=== PATIENT | male | born 1965 | race Caucasian/White ===

== ENCOUNTER 2021-04-22 23:45 | Emergency (ER) | payer SELFPAY ==
[~2021-04-22] VITALS: Ht 175.3 cm; Wt 87.0 kg
[2021-04-23 00:37] LABS: BASOPHILS % (AUTO) 0 % (0-1); EOSINOPHILS % (AUTO) 3 % (1-7); LYMPHOCYTES % (AUTO) 31 % (22-44); MEAN CORPUSCULAR HEMOGLOBIN 31.4 pg (27.5-34.5); MEAN CORPUSCULAR HGB CONC 34.6 g/dL (33.2-36.2); MEAN PLATELET VOLUME 9.2 fL (7.4-10.4); MONOCYTES % (AUTO) 13 % (2-9); NEUTROPHILS % (AUTO) 52 % (42-75); PLATELET COUNT 215 x10^3/uL (130-400); RED BLOOD COUNT 5.26 x10^6/uL (4.38-5.82); RED CELL DISTRIBUTION WIDTH 13.4 % (9.4-14.8)
[2021-04-23 00:47] LABS: ANION GAP 3 mmol/L (5-15); CHLORIDE 103 mmol/L (98-107); CREATININE 1.36 mg/dL (0.7-1.3)
[2021-04-23] MEDS ORDERED: ONDANSETRON 2MG/ML, 2ML ONE (01:26)
[2021-04-23] MEDS ORDERED: KETOROLAC 30 MG/1 ML ONE (01:26)
[2021-04-23] MEDS ORDERED: KETOROLAC 30 MG/1 ML IVPush ONE (01:30)
[2021-04-23] MEDS ORDERED: ONDANSETRON 2MG/ML, 2ML IVPush ONE (01:30)
[2021-04-23] MEDS ORDERED: SODIUM CHLORIDE FLUSH 10ML SYR IVF ONE (01:30)
[2021-04-23] MEDS ORDERED: MORPHINE SULFATE 4 MG/ML, 1ML IVPush PRN (01:30)
[2021-04-23] MEDS ORDERED: MORPHINE SULFATE 4 MG/ML, 1ML ONE (01:39)
--- NOTE | 2021-04-23 01:55 | NUR ---
PT WALKED BACK TO THIS RNS ROOM AT THIS TIME. PT CAME INTO ED TODAY DUE TO LEFT FLANK PAIN SINCE THIS AFTERNOON. PT HAS HX OF KIDNEY STONES THAT "FEEL SIMILAR TO THIS BUT THIS IS WORSE". PT MEDICATED PER DEC, UA OBTAINED, PROVIDED WARM BLANKETS FOR COMFORT, SO AT BS. WCTM. WAITING FOR UA
[2021-04-23 02:16] LABS: MICROSCOPIC AUTO
[2021-04-23 02:35] VITALS: BP 136/76
== END 2021-04-23 03:09 | disposition home or self-care (01) ==
LOC: ED 23:54
DX: N13.2 Hydronephrosis with renal and ureteral calculous obstruction (principal); Z87.891 Personal history of nicotine dependence
CPT/HCPCS: 36415; 76770; 80048; 81001; 85025; 96374; 96375; 99284; J1885; J2270; J2405

== ENCOUNTER 2021-04-23 14:19 | Emergency (ER) | payer SELFPAY ==
[~2021-04-23] VITALS: Ht 175.3 cm; Wt 86.8 kg
[2021-04-23] MEDS ORDERED: ONDANSETRON 2MG/ML, 2ML IVPush ONE (15:00)
[2021-04-23] MEDS ORDERED: SODIUM CHLORIDE FLUSH 10ML SYR IVF ONE (15:00)
[2021-04-23] MEDS ORDERED: HYDROmorphone 1 MG/ML, 1ML INJ IV ONE (15:00)
[2021-04-23] MEDS ORDERED: HYDROmorphone 1 MG/ML, 1ML INJ ONE (15:13)
[2021-04-23] MEDS ORDERED: ONDANSETRON 2MG/ML, 2ML ONE (15:13)
--- NOTE | 2021-04-23 15:19 | NUR ---
RECEIVED VERBAL ORDER FROM ERP OK TO CHANGE MED ROUTE TO IM. ORDER INPUT AND CARRIED OUT.
[2021-04-23] MEDS ORDERED: ONDANSETRON 2MG/ML, 2ML IM ONE (15:30)
[2021-04-23] MEDS ORDERED: HYDROmorphone 1 MG/ML, 1ML INJ IM ONE (15:30)
--- NOTE | 2021-04-23 15:38 | NUR ---
PT AMBULATED TO RESTROOM WITH STEADY GAIT TO PROVIDE URINE SAMPLE. UA COLLECTED AND SENT TO LAB. PT STATES PAIN HAS DECREASED AFTER PAIN MEDS.
[2021-04-23 15:45] LABS: MICROSCOPIC NOT IND
--- NOTE | 2021-04-23 15:47 | NUR ---
PT AT CT
--- NOTE | 2021-04-23 16:07 | NUR ---
ALL RESULTS ARE BACK AT THIS TIME. CHART UP FOR RECHECK.
[2021-04-23 17:26] VITALS: BP 148/82
== END 2021-04-23 17:28 | disposition home or self-care (01) ==
LOC: ED 16:41
DX: N20.0 Calculus of kidney (principal); Z87.891 Personal history of nicotine dependence
CPT/HCPCS: 74176; 81003; 96372; 99284; J1170; J2405